=== PATIENT | male | born 1970 | race Caucasian/White ===

== ENCOUNTER 2017-03-02 00:33 | Emergency (ER) | payer SELFPAY ==
[~2017-03-02] VITALS: Ht 177.8 cm; Wt 81.6 kg
--- NOTE | 2017-03-02 00:44 | NUR ---
PT WALKED INTO ER C/O RT SIDED CP WITH SOB X3 DAYS, S/P MECH FALL, WORSE WITH DEEP BREATH.. PT IS ALERT, ORIENTED X 3, EKG DONE, AT BEDSIDE...
[2017-03-02] MEDS ORDERED: HYDROCODONE/APAP 10-325 MG TABLET PO ONE (02:00)
[2017-03-02 02:08] LABS: BASOPHILS # (AUTO) 0.1 K/uL (0.0-8.0); BASOPHILS % (AUTO) 0.9 % (0.0-2.0); EOSINOPHILS # (AUTO) 0.1 K/uL (0.0-0.7); EOSINOPHILS % (AUTO) 0.5 % (0.0-7.0); HEMATOCRIT 34.5 % (40-50); HEMOGLOBIN 11.3 G/DL (14.0-18.0); LYMPHOCYTES # (AUTO) 1.1 K/UL (0.8-4.8); LYMPHOCYTES % (AUTO) 7.4 % (20.5-51.5); MEAN CORPUSCULAR HEMOGLOBIN 29.4 UUG (27.0-31.0); MEAN CORPUSCULAR HGB CONC 33 g/dL (32.0-37.0); MEAN CORPUSCULAR VOLUME 89.4 FL (82.0-92.0); MONOCYTES # (AUTO) 0.8 K/UL (0.1-1.30); MONOCYTES % (AUTO) 5.4 % (0.0-11.0); NEUTROPHILS # (AUTO) 13.1 K/UL (1.8-8.9); NEUTROPHILS % (AUTO) 85.8 % (38.5-71.5); PLATELET COUNT (AUTO) 295 K/UL (150-450); RED BLOOD CELL COUNT(AUTO) 3.85 MIL/UL (4.7-6.1); WHITE BLOOD COUNT (AUTO) 15.2 K/UL (4.0-11.2)
[2017-03-02] MEDS ORDERED: HYDROCODONE/APAP 10-325 MG TABLET ONE (02:10)
[2017-03-02 02:14] LABS: POTASSIUM 3.6 mmol/L (3.5-5.1)
[2017-03-02 02:20] LABS: BILIRUBIN,DIRECT 0.1 mg/dL (0.0-0.2); BILIRUBIN,TOTAL 0.3 mg/dL (0.2-1.0); TOTAL PROTEIN, SERUM 7.4 g/dL (6.4-8.2)
--- NOTE | 2017-03-02 03:07 | NUR ---
MSE COMPLETED, PT D/C'D HOME. ACI/RX X3 GIVEN. PT AMBULATED W/O DIFF/TOOK ALL BELONGINGS. PRESENT AND TO DRIVE.
[2017-03-02 03:09] VITALS: BP 144/82
== END 2017-03-02 03:10 | disposition home or self-care (01) ==
LOC: ER 00:36
DX: J18.9 Pneumonia, unspecified organism (principal); F17.200 Nicotine dependence, unspecified, uncomplicated; F19.10 Other psychoactive substance abuse, uncomplicated; M10.9 Gout, unspecified
CPT/HCPCS: 36415; 71010; 80048; 80076; 84484; 85025; 85730; 93005; 99285; A4663; 70030-TC

== ENCOUNTER 2018-11-17 22:43 | Emergency (ER) | payer MEDICAID ==
[~2018-11-17] VITALS: Ht 175.3 cm; Wt 81.6 kg
--- NOTE | 2018-11-17 23:24 | NUR ---
Pt. ambulated into ED w/ LLE cellulitis on ankle x 1 week and 8/10 pain, CMS of distal extremity intact, redness and swelling noted around the wound, denies RICK/CP/F/C/N/V/D, pt. is homeless
--- NOTE | 2018-11-17 23:34 | NUR ---
at bedside for MSE
[2018-11-17] MEDS ORDERED: HYDROCODONE/APAP 5-325MG TABLET ONE (23:41)
[2018-11-17] MEDS ORDERED: SULFAMETH/TRIMETH 800/160 MG TABLET ONE (23:42)
[2018-11-17] MEDS ORDERED: HYDROCODONE/APAP 5-325MG TABLET PO ONE (23:45)
[2018-11-17] MEDS ORDERED: SULFAMETH/TRIMETH 800/160 MG TABLET PO ONE (23:45)
--- NOTE | 2018-11-17 23:48 | NUR ---
Wound cleaned w/ NS, dressed w/ nonstick gauze, kerlex wrap and then Bernette wrap- CMS intact
--- NOTE | 2018-11-17 23:52 | NUR ---
Patient given written and verbal discharge instructions. Patient verbalizes understanding of instructions. Patient is ambulatory with steady gait. Refuses offer of intermediate placement. Patient given list of available shelters in surrounding area. Pt. d/c w/ prescription per MD order, d/c papers signed, all belongings w/ pt., ID band removed, gauze given for wound dressing change, homeless resource packet given and signed, - refuses service at this time
== END 2018-11-18 | disposition home or self-care (01) ==
LOC: ER 22:47
DX: L03.116 Cellulitis of left lower limb (principal); L97.829 Non-pressure chronic ulcer of other part of left lower leg with unspecified severity; F15.10 Other stimulant abuse, uncomplicated; F11.10 Opioid abuse, uncomplicated; F17.290 Nicotine dependence, other tobacco product, uncomplicated
CPT/HCPCS: A4217; A4663